=== PATIENT | female | born 1935 | race Caucasian/White ===

== ENCOUNTER → 2016-08-05 | Outpatient (CLI) | payer OTHER, MEDICARE ==
[2016-08-05 15:30] LABS: BUN/CREATININE RATIO 28.33 (6-20)
[2016-08-05 15:31] LABS: CHOL/HDL RATIO 4.09 RATIO (0-4.0); HEMOGLOBIN A1C 7.04 % (4.2-6.0); LDL CHOLESTEROL,CALCULATED 128.6 mg/dL
== END ==
LOC: LAB 09:40
PROVIDERS: ATTEND Physician Assistant Medical
DX: E11.9 Type 2 diabetes mellitus without complications (principal); I10 Essential (primary) hypertension; E03.9 Hypothyroidism, unspecified; E78.5 Hyperlipidemia, unspecified
CPT/HCPCS: 80053; 80061; 83036; 84443